=== PATIENT | female | born 1950 | race Caucasian/White ===

== ENCOUNTER 2021-04-27 07:53 | Inpatient (IN) ==
[2021-04-27 09:15] LABS: Basophils % 0.2 %; Eosinophils # 0.1 K/mcL (0.0-0.6); Eosinophils % 0.7 %; Hematocrit 41.7 % (35.3-44.9); Hemoglobin 12.6 g/dL (11.5-15.4); Immature Granulocytes % 0.6 % (0-4); Lymphocytes # 0.4 K/mcL (0.6-4.6); Lymphocytes % 2.4 %; Mean Corpuscular HGB Conc 30.2 g/dL (31.6-35.5); Mean Corpuscular Hemoglobin 30.9 pg (28.0-33.3); Mean Corpuscular Volume 102.2 fL (83.0-100.0); Mean Platelet Volume 11.5 fL (9.4-12.4); Monocytes # 0.6 K/mcL (0.0-1.3); Monocytes % 3.9 %; Neutrophils # 14.1 K/mcL (1.6-8.9); Platelet Count 219 K/mcL (140-400); Red Blood Count 4.08 M/mcL (3.82-4.97); Red Cell Distribution Width 14.9 % (11.5-14.5); Segmented Neutrophils % 92.2 %; White Blood Count 15.3 K/mcL (4.3-11.1)
[2021-04-27] MEDS ORDERED: Acetaminophen 650 MG RECTAL SUPP RC ONE (09:18)
[2021-04-27 09:34] LABS: Calcium 10.2 mg/dL (8.6-10.3); Potassium 3.8 mEq/L (3.5-5.1)
[2021-04-27 10:14] LABS: Bilirubin,Urine Negative (Negative); Blood,Urine Negative (Negative); Clarity,Urine Turbid (Clear); Color,Urine Yellow (Yellow); Glucose,Urine (UA) Normal (Normal); Hyaline Casts,Urine Many per lpf (None Seen); Ketones,Urine Negative (Negative); Leukocyte Esterase,Urine Negative (Negative); Mucus,Urine Few per lpf (None-Few); Nitrite,Urine Negative (Negative); Protein,Urine Trace mg/dL (Neg-Trace); RBC,Urine 0-3 per hpf (0-3); Specific Gravity,Urine 1.017 (1.010-1.025); Squamous Epithelial Cell,Urine Few per hpf (None-Few); Urobilinogen,Urine Normal (Normal); WBC,Urine 0-3 per hpf (0-3)
[2021-04-27] MEDS ORDERED: cefTRIAXone 1,000 MG in Water for inj. (sterile) 10 ML IVP ONE (10:19)
[2021-04-27] MEDS ORDERED: 0.9 % Sodium Chloride 1,000 ML IV ONE (10:24)
[2021-04-27] MEDS ORDERED: *HR* LORazepam 2 MG/ML VIAL IVP ONE (12:42)
[2021-04-27] MEDS ORDERED: Ondansetron 4 MG/2 ML VIAL IVP PRN (12:54)
[2021-04-27] MEDS ORDERED: Naloxone 0.4 MG/ML INJ IVP PRN (12:54)
[2021-04-27] MEDS ORDERED: Ipratropium/Albuterol Neb 3 ML IH PRN (13:07)
[2021-04-27] MEDS ORDERED: 0.9 % Sodium Chloride 1,000 ML IVC ONE (14:27)
[2021-04-27] MEDS ORDERED: Vancomycin 2,000 MG/520 ML IV.SOLN IVPB ONE (14:47)
[2021-04-27] MEDS: Piperacillin/Tazobactam 3.375 GM in 0.9 % Sodium Chloride Mini Bag 100 ML IVPB SCH (15:36)
[2021-04-28] MEDS: Piperacillin/Tazobactam 3.375 GM in 0.9 % Sodium Chloride Mini Bag 100 ML IVPB SCH ×4 (00:04→23:19)
[2021-04-28] MEDS ORDERED: *HR* LORazepam 2 MG/ML VIAL IVP ONE ×2 (04:49→09:10)
[2021-04-28] MEDS ORDERED: cefTRIAXone 1,000 MG in Water for inj. (sterile) 10 ML IVP SCH (09:00)
[2021-04-28 09:03] LABS: Basophils % 0.4 %; Eosinophils # 0.1 K/mcL (0.0-0.6); Eosinophils % 1.7 %; Hematocrit 36.3 % (35.3-44.9); Hemoglobin 11.1 g/dL (11.5-15.4); Immature Granulocytes % 0.9 % (0-4); Lymphocytes # 1.4 K/mcL (0.6-4.6); Mean Corpuscular HGB Conc 30.6 g/dL (31.6-35.5); Mean Corpuscular Hemoglobin 31.1 pg (28.0-33.3); Mean Corpuscular Volume 101.7 fL (83.0-100.0); Mean Platelet Volume 11.7 fL (9.4-12.4); Monocytes # 0.7 K/mcL (0.0-1.3); Monocytes % 8.9 %; Neutrophils # 5.4 K/mcL (1.6-8.9); Platelet Count 173 K/mcL (140-400); Red Blood Count 3.57 M/mcL (3.82-4.97); Red Cell Distribution Width 14.9 % (11.5-14.5); Segmented Neutrophils % 70.1 %; White Blood Count 7.8 K/mcL (4.3-11.1)
[2021-04-28 09:30] LABS: Calcium 8.7 mg/dL (8.6-10.3); Magnesium 2.1 mg/dL (1.6-2.6); Phosphorous 3.3 mg/dL (2.7-4.5); Potassium 4.6 mEq/L (3.5-5.1)
[2021-04-28 10:51] LABS: ABG Base Excess -1 mEq/L (-2 to 3); ABG HCO3 26 mEq/L (21-27); ABG Oxygen Saturation 95 % (95-98); ABG PCO2 52 mmHg (35-45); ABG PO2 83 mmHg (85-104); ABG TCO2 27 mEq/L (20-26)
[2021-04-28 12:21] LABS: Thyroid Stimulating Hormone 0.215 mcIU/mL (0.340-5.600)
[2021-04-28] MEDS ORDERED: Levothyroxine Sodium 100 MCG VIAL IVP SCH (13:30)
[2021-04-28 13:41] LABS: Albumin 3.1 g/dL (3.5-5.7); Albumin/Globulin Ratio 1.6 (1.1-2.2); Bilirubin,Direct 0.1 mg/dL (0.0-0.2); Bilirubin,Indirect 0.3 mg/dL (0.0-1.0); Bilirubin,Total 0.4 mg/dL (0.3-1.0); Globulin 1.9 g/dL (2.4-3.5)
[2021-04-28 14:39] LABS: Triiodothyronine (T3) Free 2.47 pg/mL (2.50-3.90)
[2021-04-28] MEDS: Morphine Sulfate 2 MG/ML SYRINGE IVP SCH ×2 (14:55→20:02)
[2021-04-28] MEDS: *HR* LORazepam 2 MG/ML VIAL IVP SCH ×2 (14:55→20:01)
[2021-04-28] MEDS ORDERED: Vancomycin 2,000 MG/520 ML IV.SOLN IVPB SCH (17:00)
[2021-04-28] MEDS: Vancomycin 1,250 MG/262.5 ML IV.SOLN IVPB SCH (17:53)
[2021-04-29] MEDS ORDERED: Acetaminophen IV 1,000 MG/100 ML BAG IVPB ONE (00:36)
[2021-04-29] MEDS ORDERED: *HR* LORazepam 2 MG/ML VIAL IVP ONE (00:39)
[2021-04-29] MEDS ORDERED: Levothyroxine Sodium 100 MCG VIAL IVP SCH (09:00)
[2021-04-29 09:17] LABS: Basophils % 0.3 %; Eosinophils # 0.3 K/mcL (0.0-0.6); Eosinophils % 3.3 %; Hematocrit 36.8 % (35.3-44.9); Hemoglobin 11.2 g/dL (11.5-15.4); Immature Granulocytes % 0.8 % (0-4); Lymphocytes # 1.6 K/mcL (0.6-4.6); Lymphocytes % 20.7 %; Mean Corpuscular HGB Conc 30.4 g/dL (31.6-35.5); Mean Corpuscular Hemoglobin 30.9 pg (28.0-33.3); Mean Corpuscular Volume 101.4 fL (83.0-100.0); Mean Platelet Volume 11.4 fL (9.4-12.4); Monocytes # 0.7 K/mcL (0.0-1.3); Monocytes % 9.3 %; Neutrophils # 5.1 K/mcL (1.6-8.9); Platelet Count 173 K/mcL (140-400); Red Blood Count 3.63 M/mcL (3.82-4.97); Red Cell Distribution Width 14.6 % (11.5-14.5); Segmented Neutrophils % 65.6 %; White Blood Count 7.8 K/mcL (4.3-11.1)
[2021-04-29 09:36] LABS: Alanine Aminotransferase 15 Units/L (7-52); Albumin 3.1 g/dL (3.5-5.7); Albumin/Globulin Ratio 1.3 (1.1-2.2); Alkaline Phosphatase 59 Units/L (34-104); Aspartate Amino Transferase 15 Units/L (13-39); BUN/Creatinine Ratio 18 (6-26); Bilirubin,Total 0.4 mg/dL (0.3-1.0); Blood Urea Nitrogen 17 mg/dL (8-23); Calcium 8.8 mg/dL (8.6-10.3); Carbon Dioxide 22 mEq/L (23-29); Chloride 110 mEq/L (98-107); Globulin 2.3 g/dL (2.4-3.5); Glucose 64 mg/dL (70-105); Osmolality,Calculated 298 (280-300); Potassium 3.7 mEq/L (3.5-5.1); Sodium 144 mEq/L (136-145); Total Protein 5.4 g/dL (6.4-8.9); eGFR For African Americans > 60 (> 60); eGFR For Non-African Americans 59 (> 60)
[2021-04-29] MEDS: Levothyroxine Sodium 100 MCG VIAL IVP SCH (10:42)
[2021-04-29] MEDS: Piperacillin/Tazobactam 3.375 GM in 0.9 % Sodium Chloride Mini Bag 100 ML IVPB SCH ×2 (10:43→14:59)
[2021-04-29] MEDS: Morphine Sulfate 2 MG/ML SYRINGE IVP SCH ×3 (10:51→20:42)
[2021-04-29] MEDS: *HR* LORazepam 2 MG/ML VIAL IVP SCH (11:06)
[2021-04-29] MEDS ORDERED: *HR* LORazepam 0.5 MG TABLET PO PRN (12:00)
[2021-04-29] MEDS: *HR* Enoxaparin 40 MG/0.4 ML SYRINGE SQ SCH (14:59)
[2021-04-29] MEDS: Vancomycin 1,250 MG/262.5 ML IV.SOLN IVPB SCH (18:41)
[2021-04-30] MEDS: Piperacillin/Tazobactam 3.375 GM in 0.9 % Sodium Chloride Mini Bag 100 ML IVPB SCH ×2 (00:03→11:22)
[2021-04-30] MEDS: *HR* LORazepam 0.5 MG TABLET PO PRN ×2 (05:06→15:34)
[2021-04-30] MEDS: *HR* Enoxaparin 40 MG/0.4 ML SYRINGE SQ SCH (05:07)
[2021-04-30] MEDS ORDERED: *HR* Enoxaparin 40 MG/0.4 ML SYRINGE SQ SCH (06:00)
[2021-04-30 07:13] VITALS: TEMP 98.2
[2021-04-30 11:15] VITALS: BP 149/67; PULSE 63; O2SAT 100
[2021-04-30] MEDS: Morphine Sulfate 2 MG/ML SYRINGE IVP SCH (11:22)
[2021-04-30] MEDS: Levothyroxine Sodium 100 MCG VIAL IVP SCH (11:23)
[2021-04-30] MEDS ORDERED: Vancomycin 1,500 MG/265 ML IV.SOLN IVPB SCH (18:00)
== END 2021-04-30 16:04 | DRG 871 ==
LOC: EMEROOARM 07:53 → 2ANU 07:53
PROVIDERS: ADMIT Student in an Organized Health Care Education/Training Program; ATTEND Student in an Organized Health Care Education/Training Program